=== PATIENT | female | born 1950 | race Caucasian/White ===

== ENCOUNTER 2016-08-09 07:21 | Observation (INO) ==
--- NOTE | 2016-08-09 08:06 | XRay Report ---
Referring Physician: Issa Simon Exam: XR right tibia/fibula 2 views Date: August 09, 2016 at 7:51 AM Reason: Right leg injury, initial encounter Comparison: None Findings: There is mild degenerative change at the right knee. No acute fracture, dislocation or osseous destructive process is identified. There appears to be soft tissue swelling at the right lower extremity, especially at the medial aspect of the right lower calf. Impression: No acute osseous process is identified. However, there appears to be soft tissue swelling at the right lower extremity, mainly at the medial aspect of the right lower calf. PROCEDURE INTERPRETED AT [facility] DEPARTMENT OF RADIOLOGY Final Report Signed by: Dr. Michelle Sena
[2016-08-09 08:28] LABS: Basophils # 0.1 10*3/uL (0.0-0.2); Eosinophils # 0.6 10*3/uL (0.0-0.87); Eosinophils % 6.9 % (0.00-10.9); Hematocrit 44.3 VOL% (35.7-47.0); Hemoglobin 14.6 GM/DL (12.0-16.0); Immature Granulocytes % 0.3 %; Immature Granulocytes Absolute 0.03 #; Lymphocytes % 22.1 % (21.3-54.2); Mean Corpuscular Hemoglobin 29 PG (27-34); Mean Platelet Volume 9.9 FL (9.6-12.0); Monocytes # 0.8 10*3/uL (0.11-0.8); Monocytes % 8.8 % (1.7-12.7); Neutrophils # 5.6 10*3/uL (1.4-7.4); Neutrophils % 60.9 % (38.7-73.9); Platelet Count 260 T/CUMM (130-400); Red Blood Count 5.09 MC/CUMM (3.8-5.5); Red Cell Distribution Width 13.7 % (9.3-17.3); White Blood Count 9.1 T/CUMM (4-12)
[2016-08-09 08:38] LABS: PT Patient Result 10.8 SECS; Partial Thromboplastin Time 27.7 SECS (0-40)
[2016-08-09 09:00] LABS: Calcium 9.1 MG/DL (8.5-10.1); Magnesium 1.8 MG/DL (1.8-2.4); Osmolality,Calculated 282.4 MOS/KG (273-304); Potassium 3.6 MMOL/L (3.5-5.1)
[2016-08-09] MEDS ORDERED: CEFTAROLINE 600 MG in SODIUM CHLORIDE 0.9% 100 ML IV STA (09:24)
--- NOTE | 2016-08-09 09:31 | Emergency Department Note ---
Dhaval Wright Brooke, am scribing for, and in the presence of, Issa Simon MD 08:12. Aurora Wright Hans, MD, personally performed the services described in this documentation, ascribed by Nurys Puentes in my presence, and it is both accurate and complete 931 . Arrival - Arrival Chief Complaint: Extremity Injury Stated Complaint: swelling and brusing on leg ED Nursing Triage Note: Pt c/o slip and fall last night striking her right lower anterior leg on a step. Pt has large hematoma to the area. Mode of Arrival: Wheelchair Limitations: No Limitations Source: Patient, RN Notes Reviewed Time Seen by Provider: 08/09/16 07:50 - History of Present Illness HPI Narrative: Patient is a 66 year old female who presents to the ED with c/o pain, erythema, and ecchymosis to right lower leg. Patient says she slipped on a step, last night around 2300, and the right leg "slid" down the side of the step. She says she did not fall. Patient says the erythema, and ecchymosis has worsened over night. There is now a hematoma. Patient is unable to ambulate because of the pain. She has erythema streaking up the right leg. She does not have a history of skin infections but says she did have a "scratch" on the left leg that "took a while to heal." Patient says she does not normally bruise easily. She has no other complaints. Patient has PMHx of HTN, thyroid disorder, RA, bronchitis, COPD, pneumonia, right kidney cancer, and eczema. Patient is not currently taking any blood thinners. Onset (ago): day(s) (1) Allergies/Adverse Reactions: Allergies Allergy/AdvReac Type Severity Reaction Status Date / Time adhesive tape Allergy Mild ITCHING Verified 12/05/15 09:11 Home Medications: Home Medications Medication Instructions Recorded Confirmed Type Losartan [Cozaar] 1 tablet PO DAILY 11/21/15 12/05/15 History Methocarbamol Tab [Robaxin Tab] 750 mg PO BID 11/21/15 12/05/15 History Morphine Sulfate 30 mg PO TID 11/21/15 12/05/15 History Triamterene/Hctz 75-50 Tab 1 tablet PO DAILY 09/27/16 10/11/16 History [Maxzide 75-50] traMADol TAB [Ultram] 1 tablet PO DAILY 11/21/15 12/05/15 History Review of System - Review of System 12 point system: reviewed and no additional remarkable complaints except as stated - Review of System Constitutional: Absent: fever Respiratory: Absent: respiratory distress Skin: Present: other (Right lower leg pain, erythema, and ecchymosis). Absent: rash Medical,Surgical,& Family Hx - Medical History Cardio: History of: Hypertension Endocrine: History of: Thyroid Disorder (NO MEDS) Rheumatology: History of;: Rheumatoid Arthritis Respiratory: History of: Bronchitis, COPD, Pneumonia Genitourinary: History of: Genitourinary Cancer (R KIDNEY) Other: History of: Eczema - Surgical History Thoracic Surgeries: Surgical HX of;: Kidney (Renal Surgery) (SMALL PORTION R KIDNEY) Reproductive Surgeries: Surgical HX of;: Dilation and Curettage, Hysterectomy - Family History Family History: Reports;: Family Hypertension (MOM), Family Stroke (MOM) - Social History Smoking Status: Never smoker Exam Vital Signs: Vital Signs Temperature 97.8 F 08/09/16 07:52 Pulse Rate 85 08/09/16 07:52 Respiratory Rate 18 08/09/16 07:52 Blood Pressure 140/75 08/09/16 07:52 O2 Sat by Pulse Oximetry 94 L 08/09/16 07:27 - General General appearance: alert, in no apparent distress, obese - Head Head exam: Present: atraumatic, normocephalic - Eye Eye exam: Present: normal appearance, PERRL, EOMI - ENT ENT exam: Present: normal exam - Neck Neck exam: Present: normal inspection - Chest Chest inspection: Present: normal inspection, symmetric chest wall rise - Respiratory Respiratory exam: Present: normal lung sounds bilaterally - Cardiovascular Cardiovascular exam: Present: regular rate, normal rhythm, normal heart sounds - Abdominal Exam Abdominal exam: Present: soft. Absent: distention, tenderness - Extremities Exam Extremities exam: Present: normal inspection, other (Right lower extremity pulses palpable) - Back Exam Back exam: Present: normal inspection - Neurological Exam Neurological exam: Present: alert, oriented X3 - Psychiatric Psychiatric exam: Present: normal affect, normal mood - Skin Skin exam: Present: warm, dry, intact, other (Right lower extremity ecchymosis and red streak going up leg. No crepitus or skin blisters.) Course Course Narrative: This patient was evaluated in the ER and found to have an impressive cellulitis with hematoma on the right inner lower leg. She was treated with teflaro and discussed with hospitalist continuous miner for admission for cellulitis. Results - Labs CBC & BMP: 08/09/16 08:03 08/09/16 08:03 Lab Results: I have reviewed the patients labs Labs: Laboratory Tests 08/09/16 08:03 Baso % (Auto) 1.0 H Laboratory Tests 08/09/16 08/09/16 08/09/16 08:03 08:03 08:03 WBC 9.1 RBC 5.09 Hgb 14.6 Hct 44.3 MCV 87.0 MCH 29 MCHC 33.0 RDW 13.7 Plt Count 260 MPV 9.9 Neut % (Auto) 60.9 Lymph % (Auto) 22.1 [place] % (Auto) 8.8 Eos % (Auto) 6.9 Baso % (Auto) 1.0 H Neut # (Auto) 5.6 Lymph # (Auto) 2.0 [place] # (Auto) 0.8 Eos # (Auto) 0.6 Baso # (Auto) 0.1 Immature Gran % 0.3 Nucleated RBC % 0.0 Immature Gran # 0.03 Nucleated RBCs # 0.00 INR 1.0 PT Patient/Control Mix 10.8 Circ Anticoag PTT 27.7 Sodium 140 Potassium 3.6 Chloride 99 Carbon Dioxide 32 Anion Gap 12.6 BUN 24 H Creatinine 0.80 GFR Calculation 109 BUN/Creatinine Ratio 30.00 H Glucose 95 Calculated Osmolality 282.4 Calcium 9.1 Magnesium 1.8 - Diagnostic Findings Procedure: X-ray: report reviewed by me (XR tibia fibula RT: No acute osseous process id identifed. However, there appears to be soft tissue swelling at the right lower extremity, mainly at the medial aspect of the right lower calf.) Disposition Clinical Impression: Cellulitis Case discussed with: patient Disposition: Still a Patient Condition: Stable Time of Disposition: 09:31
[2016-08-09] MEDS ORDERED: DOCUSATE SODIUM 100 MG CAPSULE PO PRN (09:54)
[2016-08-09] MEDS ORDERED: guaiFENesin/DM ER 600-30 MG TABLET PO PRN (09:54)
[2016-08-09] MEDS ORDERED: PROMETHAZINE 25 MG/1 ML VIAL IM PRN (09:54)
[2016-08-09] MEDS ORDERED: CEFTAROLINE 600 MG VIAL IV ONE (09:54)
[2016-08-09] MEDS ORDERED: diphenhydrAMINE CAP 25 MG CAPSULE PO PRN (09:54)
--- NOTE | 2016-08-09 09:58 | Hospitalist History & Physical ---
Assessment and Plan - Time spent with patient Time spent with patient: Greater than 30 minutes (1) Hematoma Status: Acute Assessment and plan: 66-year-old mildly obese white female with history of chronic back pain with stimulator, hypertension, RA, and kidney cancer admitted by the hospitalist service with severe cellulitis to the right lower extremity and hematoma due to a fall last night. The hematoma does not look infected or necrotic at this point in time. Patient will receive IV antibiotics and ice for pain control. Will restart her home medicines and add some additional pain medicines for her leg. Patient does ambulate with 2 canes so she can continue to use this to help with ambulation. We will continue to watch the hematoma in the leg for improvement because if it does not we will need to consult surgery for drainage of the hematoma. Dr. Tan will see and examined patient and further recommendations to follow. Current Visit: Yes (2) Chronic back pain Status: Acute Current Visit: Yes (3) Hypertension Status: Acute Current Visit: Yes (4) Rheumatoid arthritis Status: Acute Current Visit: Yes (5) Cellulitis Status: Acute Current Visit: Yes History of Present Illness Chief complaint: Right lower leg pain and redness History of present illness: Ms. Cortez is a 66 year old white female with history of hypertension, RA, kidney cancer, and chronic back pain presenting to the ED with a 1 day history of redness pain and hematoma to the right lower extremity. Patient states she was trying to get in her bed last night and she slipped on the step and hit her right rizo. Patient states the pain was a 20/10 last night and as long as she is immobile this morning there is no pain. She states that increases to a 5/10 out of pain when she is up ambulating. She does ambulate with 2 canes and she has brought them with her on this visit. Patient is afebrile and vital signs are stable. Her white count is normal but her right lower leg is severely cellulitic with a 7 x 7 cm raised hematoma on medial rizo. The hematoma does not look infected or necrotic at this point in time. X-ray of her tib-fib shows no osseous process. Just some soft tissue swelling at the right lower extremity more on the medial aspect of the right lower calf. Patient denies headache, dizziness, shortness of breath, chest pain, abdominal pain, dysuria, or lower extremity edema. Patient did receive a dose of Teflaro in the ED. After discussion with Dr. Simon the ED physician and Dr. Tan the hospitalist it was agreed patient would be admitted under observation for several doses of antibiotics due to the severity of the cellulitis. Home Medications Medication Instructions Recorded Confirmed Type Losartan [Cozaar] 1 tablet PO DAILY 11/21/15 12/05/15 History Methocarbamol Tab [Robaxin Tab] 750 mg PO BID 11/21/15 12/05/15 History Morphine Sulfate 30 mg PO TID 11/21/15 12/05/15 History Triamterene/Hctz 75-50 Tab 1 tablet PO DAILY 11/21/15 12/05/15 History [Maxzide 75-50] traMADol TAB [Ultram] 1 tablet PO DAILY 11/21/15 12/05/15 History Allergies Allergy/AdvReac Type Severity Reaction Status Date / Time adhesive tape Allergy Mild ITCHING Verified 12/05/15 09:11 Medical,Surgical,& Family Hx - Medical History Cardio: History of: Hypertension Endocrine: History of: Thyroid Disorder (NO MEDS) Rheumatology: History of;: Rheumatoid Arthritis Respiratory: History of: Bronchitis, COPD, Pneumonia Genitourinary: History of: Genitourinary Cancer (R KIDNEY) Other: History of: Eczema - Surgical History Thoracic Surgeries: Surgical HX of;: Kidney (Renal Surgery) (SMALL PORTION R KIDNEY) Reproductive Surgeries: Surgical HX of;: Dilation and Curettage, Hysterectomy - Family History Family History: Reports;: Family Hypertension (MOM), Family Stroke (MOM) - Social History Smoking Status: Never smoker Frequency of Alcohol Use: None Type of Drug Use: None Marital Status: Lives With:: Spouse Functional capacity: uses cane/walker Review of systems: A complete 10 system review of systems was obtained and pertinent positives and negatives per HPI Exam - Constitutional Vitals: Period Temp Pulse Resp BP Sys/Florian Pulse Ox Last 24 Hr 97.8 F-97.8 F 85-85 18-18 140-140/75-75 94 Exam: 66-year-old obese white female, no acute distress, alert and oriented Constitutional System: No distress. No tremulousness. Head: Normocephalic, atraumatic. Ears, Nose and Throat System: No evidence of Otitis or Mastoiditis. No epistaxis or discharge Eyes System: Pupils equal, round, and reactive. Extraocular muscles intact. Neck: Supple, without adenopathy, No jugular venous distention. No thyromegaly, neck mass, or prior surgery apparent. Respiratory System: Chest clear to auscultation. Cardiovascular System: Heart with regular rate and rhythm. No murmur. GI System: Abdomen soft, nontender morbidly obese. Normo active bowel sounds present. Musculoskeletal System: limbs with no pedal edema. Full distal pulses. Severe cellulitis to the right lower extremity streaking up to the knee with 7 x 7 cm raised hematoma with no necrosis Neurological System: No discernable sensory deficit. No aphasia Psychiatric System: Conversation is rational Results - Labs CBC & BMP: 08/09/16 08:03 08/09/16 08:03 Lab Results: I have reviewed the past 24 hour labs - Diagnostic Findings Procedure: X-ray: report reviewed by me (Tib-fib x-ray shows no acute osseous process identified but soft tissue swelling at the right lower extremity.)
[2016-08-09] MEDS ORDERED: ANORO ELLIPTA (Umeclidinium Brm/Vilanterol Tr) 1 PUFF INH SCH (10:00)
[2016-08-09] MEDS ORDERED: HYDROmorphone 2 MG/1 ML VIAL IV PRN (10:08)
[2016-08-09] MEDS: CEFTAROLINE 600 MG in SODIUM CHLORIDE 0.9% 100 ML IV SCH ×2 (12:49→20:58)
[2016-08-09] MEDS: SODIUM CHLORIDE 0.9% 1,000 ML IV SCH (13:15)
[2016-08-09] MEDS: LOSARTAN 25 MG TABLET PO SCH (13:23)
[2016-08-09] MEDS: TRIAMTERENE/HCTZ 75-50 MG TABLET PO SCH (13:23)
[2016-08-09] MEDS: LUBIPROSTONE 24 MCG CAPSULE PO SCH (13:24)
[2016-08-09] MEDS: traMADol 50 MG TABLET PO SCH (13:24)
[2016-08-09] MEDS: METHOCARBAMOL 750 MG TABLET PO SCH ×2 (13:24→20:58)
[2016-08-09] MEDS: PANTOPRAZOLE 40 MG TABLET PO SCH (13:25)
[2016-08-09] MEDS: ENOXAPARIN 40 MG/0.4 ML SYRINGE SUBCUT SCH (13:25)
[2016-08-09] MEDS: MORPHINE IR 15 MG TABLET PO SCH ×2 (15:01→20:58)
--- NOTE | 2016-08-09 16:17 | General Surg History&Physical ---
Assessment and Plan - Time spent with patient Time spent with patient: Greater than 30 minutes (1) Hematoma Status: Acute Assessment and plan: There is clearly a posttraumatic hematoma of the lower leg. I have offered evacuation of this. She is unsure at this time what she wants to do. She is eaten a full meal this afternoon and so I would not encourage doing anything under anesthesia today. She is going to think about it and I will hold her n.p.o. after midnight in case she agrees to go ahead tomorrow with evacuation of the hematoma. Current Visit: Yes (2) Cellulitis Status: Acute Assessment and plan: She actually has erythema of the pretibial regions of both of her lower extremities with the right side being worse than the left. She was not aware that this was before her injury or not. This does not look typical of what I would expect from trauma. I think that she may have an associated cellulitis which may or may not even be related to the hematoma. Current Visit: Yes Qualifiers: Site of cellulitis of extremity: lower extremity History of Present Illness Chief complaint: Injury to right lower leg History of present illness: Ms. Cortez is a 66 year old female Who stumbled when she was stepping up on a step stool and hit her medial right lower leg against the step stool. She believes she slipped on some water trying to get up on the stool. She developed swelling pain and redness and discoloration of her right lower leg. The pain is moderate in severity and worse if her leg is held down. She has had some increasing redness over the past 24 hours. She has had previous lower extremity cellulitis. She had an episode several years ago where she ended up with an injury and cellulitis and open wound on her left lower anterior leg. She denies fever or chills. She has had increasing redness separate from the area of swelling and ecchymosis. Home Medications Medication Instructions Recorded Confirmed Type Losartan [Cozaar] 25 mg PO DAILY 11/21/15 08/09/16 History Methocarbamol Tab [Robaxin Tab] 750 mg PO BID 11/21/15 08/09/16 History Morphine Sulfate 30 mg PO BID 11/21/15 08/09/16 History Triamterene/Hctz 75-50 Tab 1 tablet PO DAILY 11/21/15 08/09/16 History [Maxzide 75-50] traMADol TAB [Ultram] 50 mg PO DAILY 11/21/15 08/09/16 History Albuterol Sulfate [Proair HFA] 2 puff INH Q4H PRN 08/09/16 08/09/16 History Lubiprostone [Amitiza] 24 mcg PO DAILY 08/09/16 08/09/16 History Naproxen [Naprosyn Tab] 500 mg PO BID 08/09/16 08/09/16 History Umeclidinium Brm/Vilanterol Tr 1 puff INH DAILY 08/09/16 08/09/16 History [Anoro Ellipta] Allergies Allergy/AdvReac Type Severity Reaction Status Date / Time adhesive tape Allergy Mild ITCHING Verified 12/05/15 09:11 Medical,Surgical,& Family Hx - Medical History Cardio: History of: Hypertension Endocrine: History of: Thyroid Disorder (NO MEDS) Rheumatology: History of;: Rheumatoid Arthritis Respiratory: History of: Bronchitis, COPD, Pneumonia Genitourinary: History of: Genitourinary Cancer (R KIDNEY) Other: History of: Eczema - Surgical History Thoracic Surgeries: Surgical HX of;: Kidney (Renal Surgery) (SMALL PORTION R KIDNEY) Reproductive Surgeries: Surgical HX of;: Dilation and Curettage, Hysterectomy - Family History Family History: Reports;: Family Hypertension (MOM), Family Stroke (MOM) - Social History Smoking Status: Never smoker Frequency of Alcohol Use: None Type of Drug Use: None Exam - Constitutional Vitals: Period Temp Pulse Resp BP Sys/Florian Pulse Ox Last 24 Hr 97.8 F-98.2 F 78-86 18-20 140-160/75-78 93-94 General appearance: no acute distress - Head Head exam: Present: normocephalic - Eye Eye exam: Absent: scleral icterus - ENT Mouth exam: Present: normal voice - Neck Neck exam: Present: trachea midline - Respiratory Respiratory exam: Present: clear to auscultation bilaterally. Absent: accessory muscle use - Cardiovascular Cardiovascular exam: Present: RRR - GI/Abdominal GI/Abdominal exam: Present: soft. Absent: distended, tenderness, rebound - Extremities Exam Extremities exam: Present: edema, other (There is a 7 cm area of swelling and ecchymosis but the skin over this appears viable. This is on the medial lower leg.). Absent: calf tenderness - Neurological Exam Neurological exam: Present: alert, oriented X3. Absent: motor sensory deficit Speech: Present: normal - Skin Skin exam: Present: erythema - Constitutional Constitutional: Absent: anorexia, chills, fever(s) - Cardiovascular Cardiovascular: Present: dyspnea on exertion. Absent: chest pain at rest, chest pain with activity, dyspnea, syncope - Gastrointestinal Gastrointestinal: Absent: abdominal pain, hematemesis, hematochezia, nausea, jaundice - Genitourinary Genitourinary: Absent: hematuria - Musculoskeletal Musculoskeletal: Absent: back pain - Neurological Neurological: Absent: focal weakness, syncope - Endocrine Endocrine: Absent: polyuria Hematologic/Lymphatic: Absent: easy bruising Results - Labs CBC & BMP: 08/09/16 08:03 08/09/16 08:03 Lab Results: I have reviewed the past 24 hour labs
[2016-08-10] MEDS: SODIUM CHLORIDE 0.9% 1,000 ML IV SCH ×3 (00:43→16:11)
[2016-08-10 06:35] LABS: Basophils # 0.1 10*3/uL (0.0-0.2); Basophils % 1.1 % (0.0-0.8); Eosinophils # 0.4 10*3/uL (0.0-0.87); Eosinophils % 6.7 % (0.00-10.9); Hematocrit 41.4 VOL% (35.7-47.0); Hemoglobin 13.5 GM/DL (12.0-16.0); Immature Granulocytes % 0.3 %; Immature Granulocytes Absolute 0.02 #; Lymphocytes # 1.3 10*3/uL (1.4-4.0); Mean Corpuscular HGB Conc 32.6 GM/DL (32-36); Mean Corpuscular Hemoglobin 29 PG (27-34); Mean Corpuscular Volume 88.3 FL (87-102); Mean Platelet Volume 10.4 FL (9.6-12.0); Monocytes # 0.6 10*3/uL (0.11-0.8); Monocytes % 9.6 % (1.7-12.7); Neutrophils # 3.8 10*3/uL (1.4-7.4); Neutrophils % 61.3 % (38.7-73.9); Platelet Count 235 T/CUMM (130-400); Red Blood Count 4.69 MC/CUMM (3.8-5.5); Red Cell Distribution Width 13.8 % (9.3-17.3); White Blood Count 6.2 T/CUMM (4-12)
--- NOTE | 2016-08-10 09:06 | Event Note ---
The hematoma seems a little more swollen and she now desires surgical evacuation which I agree with. Procedure and risks were discussed with her and her family and she wishes to proceed today.
[2016-08-10] MEDS ORDERED: BUPIVACAINE MPF 0.25% /EPI 30 ML VIAL ONE (09:07)
[2016-08-10] MEDS: PANTOPRAZOLE 40 MG TABLET PO SCH (09:17)
[2016-08-10] MEDS: CEFTAROLINE 600 MG in SODIUM CHLORIDE 0.9% 100 ML IV SCH ×2 (09:19→20:58)
[2016-08-10] MEDS ORDERED: PROPOFOL 200 MG/20 ML VIAL IV ONE (09:40)
--- NOTE | 2016-08-10 10:02 | Hospitalist Progress Note ---
Assessment and Plan - Time spent with patient Time spent with patient: Greater than 30 minutes (1) Cellulitis Status: Acute Assessment and plan: Continue antibiotics. Current Visit: Yes Qualifiers: Site of cellulitis of extremity: lower extremity (2) Hematoma Status: Acute Assessment and plan: Appreciate surgery's assistance. Surgery today. Current Visit: Yes Hospitalist: Subjective Interval history: No complaints or overnight events. Patient has decided this morning to have the hematoma evacuated. Exam - Constitutional Vitals: Period Temp Pulse Resp BP Sys/Florian Pulse Ox Last 24 Hr 97.1 F-98.2 F 77-86 14-22 106-160/60-81 87-98 General appearance: no acute distress - Head Head exam: Present: normocephalic, atraumatic - Eye Eye exam: Present: EOMI Pupils: Present: SHARI - ENT ENT exam: Present: normal exam - Neck Neck exam: Present: normal inspection - Respiratory Respiratory exam: Present: clear to auscultation bilaterally. Absent: rhonchi, wheezes - Cardiovascular Cardiovascular exam: Present: regular rate and rhythm. Absent: gallop, rubs, systolic murmur - GI/Abdominal GI/Abdominal exam: Present: normal bowel sounds, soft. Absent: distended, firm , guarding, tenderness, rebound - Extremities Exam Extremities exam: Present: normal inspection, other (Right lower leg hematoma with surrounding erythema). Absent: calf tenderness, edema Results - Labs CBC & BMP: 08/10/16 05:45 08/09/16 08:03 Lab Results: I have reviewed the past 24 hour labs
--- NOTE | 2016-08-10 10:04 | Operative Note ---
Date of procedure: 08/10/16 Pre-op diagnosis: 7 cm hematoma right lower leg Post-op diagnosis: same Procedure: Evacuation of 7 cm subcutaneous and subfascial hematoma right medial lower leg Findings and technique: After informed consent was obtained patient was brought the operating room and placed in supine position. After IV sedation was administered the patient's right lower extremity was prepped and draped in usual sterile fashion. Local anesthesia was infiltrated and a vertical incision made about 2 cm in length along the medial left lower leg over the most intense portion of the hematoma. There was hematoma right beneath the skin and this had displaced some of the subcutaneous tissue which probably had been destroyed by trauma and fat necrosis. The hematoma itself tracked out into the subcutaneous tissues and was interspersed with her rather thick subcutaneous layer. There was hematoma beneath the superficial fascia as well which was evacuated with a suction cannula and a hemostat. This cavity was copiously irrigated out. It was inspected for bleeding and cautery applied to a few small oozing points in the subcutaneous layer and on the fascia. After the wound was irrigated and good hemostasis noted the wound edges were closed with skin clips and a bulky dressing applied. She appeared to tolerate the procedure well. Anesthesia: MAC, local Surgeon / Physician: Brant Rodriguez III. Estimated blood loss: minimal Specimens: none sent Condition: stable Disposition: PACU Results - Labs CBC & BMP: 08/10/16 05:45 08/09/16 08:03 Discharge Plan - Discharge Medications No Action Losartan [Cozaar] 25 mg PO DAILY Triamterene/Hctz 75-50 Tab [Maxzide 75-50] 1 tablet PO DAILY Methocarbamol Tab [Robaxin Tab] 750 mg PO BID traMADol TAB [Ultram] 50 mg PO DAILY Morphine Sulfate 30 mg PO BID Lubiprostone [Amitiza] 24 mcg PO DAILY Umeclidinium Brm/Vilanterol Tr [Anoro Ellipta] 1 puff INH DAILY Albuterol Sulfate [Proair HFA] 2 puff INH Q4H PRN PRN Reason: Shortness Of Breath/Wheezing Naproxen [Naprosyn Tab] 500 mg PO BID - Follow Up or Referral - Forms/Instructions
--- NOTE | 2016-08-10 10:15 | Anesthesia Post-Op ---
Anesthesia Post OP - Post Ansesthetic Evaluation Patient seen in post op: Yes Resp: within normal limits CV: within normal limits Mental: within normal limits Temp: within normal limits [id number]: within normal limits Nausea and Vomiting: within normal limits Pain: within normal limits
[2016-08-10] MEDS ORDERED: MIDAZOLAM 2 MG/2 ML VIAL ONE (10:16)
[2016-08-10] MEDS ORDERED: fentaNYL 100 MCG/2 ML VIAL ONE (10:16)
[2016-08-10] MEDS: LOSARTAN 25 MG TABLET PO SCH (11:58)
[2016-08-10] MEDS: traMADol 50 MG TABLET PO SCH (11:58)
[2016-08-10] MEDS: TRIAMTERENE/HCTZ 75-50 MG TABLET PO SCH (11:59)
[2016-08-10] MEDS: METHOCARBAMOL 750 MG TABLET PO SCH ×2 (12:00→20:57)
[2016-08-10] MEDS: LUBIPROSTONE 24 MCG CAPSULE PO SCH (12:00)
[2016-08-10] MEDS: MORPHINE IR 15 MG TABLET PO SCH ×3 (12:00→20:57)
[2016-08-10] MEDS: ENOXAPARIN 40 MG/0.4 ML SYRINGE SUBCUT SCH (12:01)
[2016-08-11] MEDS: ONDANSETRON 4 MG/2 ML VIAL IV PRN ×2 (00:37→11:44)
[2016-08-11] MEDS: SODIUM CHLORIDE 0.9% 1,000 ML IV SCH (01:44)
[2016-08-11 08:15] VITALS: BP 156/70
[2016-08-11] MEDS: MORPHINE IR 15 MG TABLET PO SCH (10:06)
[2016-08-11] MEDS: LUBIPROSTONE 24 MCG CAPSULE PO SCH (10:07)
[2016-08-11] MEDS: METHOCARBAMOL 750 MG TABLET PO SCH (10:07)
[2016-08-11] MEDS: TRIAMTERENE/HCTZ 75-50 MG TABLET PO SCH (10:08)
[2016-08-11] MEDS: LOSARTAN 25 MG TABLET PO SCH (10:08)
[2016-08-11] MEDS: traMADol 50 MG TABLET PO SCH (10:08)
[2016-08-11] MEDS: ENOXAPARIN 40 MG/0.4 ML SYRINGE SUBCUT SCH (10:09)
[2016-08-11] MEDS: PANTOPRAZOLE 40 MG TABLET PO SCH (10:09)
--- NOTE | 2016-08-11 10:10 | Discharge Summary ---
Hospital Course - Hospital Course Hospital Course: Ms. Cortez was admitted for right lower extremity traumatic hematoma. She was seen by surgery and was taken to the operating room for evacuation. She was initiated on antibiotics for potential cellulitis with the significant amount of erythema around the area. Post evacuation and initiation of antibiotics, her erythema had dramatically improved and the hematoma was near resolved. The area was clean, clear, intact and stapled. Patient was cleared for discharge by surgery. She was instructed on leg raising and ice packing. She will continue oral antibiotics as an outpatient. I spent 36 minutes coordinating this discharge. - Time spent with patient Time with patient DS: Greater than 30 minutes Diagnosis - Discharge Diagnosis (1) Cellulitis Status: Acute (2) Hematoma Status: Acute Specialty Discharge - Follow Up or Referrals Follow up with: Brant Rodriguze III., MD [Physician] - 1 Week Discharge Plan - Discharge Data Disposition: Disch To Home/Self Care Condition at Discharge: Stable Discharge Diet: advance to your usual diet Activity: resume usual activities as tolerated Hygiene: no restrictions Weight Bearing at Discharge: full weight bearing Driving: no restrictions - Discharge Medications New Sulfameth/Trimeth 800-160 Tab [Bactrim DS Tab] 1 tablet PO BID #18 tablet Continue Losartan [Cozaar] 25 mg PO DAILY Triamterene/Hctz 75-50 Tab [Maxzide 75-50] 1 tablet PO DAILY Methocarbamol Tab [Robaxin Tab] 750 mg PO BID traMADol TAB [Ultram] 50 mg PO DAILY Morphine Sulfate 30 mg PO BID Lubiprostone [Amitiza] 24 mcg PO DAILY Umeclidinium Brm/Vilanterol Tr [Anoro Ellipta] 1 puff INH DAILY Albuterol Sulfate [Proair HFA] 2 puff INH Q4H PRN PRN Reason: Shortness Of Breath/Wheezing Discontinued Naproxen [Naprosyn Tab] 500 mg PO BID - Follow Up or Referral Follow Up: Brant Rodriguez III., MD [Physician] - 1 Week - Forms/Instructions Exam - Constitutional Vitals: Period Temp Pulse Resp BP Sys/Florian Pulse Ox Last 24 Hr 97.4 F-98.3 F 21-98 16-85 114-157/47-80 91-100 General appearance: normal weight, no acute distress - Head Head exam: Present: normal inspection, normocephalic, atraumatic - Eye Eye exam: Present: EOMI Pupils: Present: SHARI - ENT ENT exam: Present: normal exam - Neck Neck exam: Present: normal inspection - Respiratory Respiratory exam: Present: clear to auscultation bilaterally. Absent: accessory muscle use, prolonged expiratory phase, wheezes - Cardiovascular Cardiovascular exam: Present: regular rate and rhythm. Absent: bradycardia, irregular rhythm, systolic murmur - GI/Abdominal GI/Abdominal exam: Present: normal bowel sounds. Absent: ascites, hypoactive bowel sounds, tenderness - Extremities Exam Extremities exam: Present: normal inspection, other (Right lower extremity anterior medial area of residual hematoma with figueroa clean clear and intact) DS: Provider Date of admission: 08/09/16 09:35 Primary care physician: . No PCP Attending physician on admission: Laila Siegel MD Consults: 08/09/16 13:32 Consult to Physician [CONS] Routine Comment: right lower leg traumatic hematoma Consulting Provider: Brant Rodriguez III. Consult to Specialist Group: Surgery When should Consulting Provider be notified: Now Consult Notification Comment: message left on phone and surgery called at [phone] 08/09/16 Discharging clinician: Laila Siegel MD Expected date of discharge: 08/11/16
[2016-08-11] MEDS: CEFTAROLINE 600 MG in SODIUM CHLORIDE 0.9% 100 ML IV SCH (10:12)
--- NOTE | 2016-08-11 10:24 | General Surgery Progress Note ---
Assessment and Plan (1) Hematoma Status: Acute Assessment and plan: There is clearly a posttraumatic hematoma of the lower leg. I have offered evacuation of this. She is unsure at this time what she wants to do. She is eaten a full meal this afternoon and so I would not encourage doing anything under anesthesia today. She is going to think about it and I will hold her n.p.o. after midnight in case she agrees to go ahead tomorrow with evacuation of the hematoma. 08/11: She feels much better. She feels that her lower extremities are now at a baseline. She has as she describes a chronic erythema of both of her lower extremities which is probably old stasis dermatitis from her morbid obesity. Her wound looks good and I think she is fine for outpatient treatment. I recommended that she keep her leg elevated and stay off of it is much as possible and also wear an Beau bandage. I will follow her up in the office in 1 week. Current Visit: Yes (2) Cellulitis Status: Acute Assessment and plan: She actually has erythema of the pretibial regions of both of her lower extremities with the right side being worse than the left. She was not aware that this was before her injury or not. This does not look typical of what I would expect from trauma. I think that she may have an associated cellulitis which may or may not even be related to the hematoma. Current Visit: Yes Qualifiers: Site of cellulitis of extremity: lower extremity Subjective Patient reports: Present: feels better. Absent: still having pain, fever Exam - Constitutional Vitals: Period Temp Pulse Resp BP Sys/Florian Pulse Ox Last 24 Hr 97.4 F-98.3 F 21-98 16-85 114-157/47-80 91-100 General appearance: no acute distress, morbidly obese - Extremities Exam Extremities exam: Present: other (The mass-effect and erythema is greatly diminished. Her skin looks viable and I do not see signs of active infection.) . Absent: edema Results - Labs CBC & BMP: 08/10/16 05:45 08/09/16 08:03 Specialty Discharge - Follow Up or Referrals Follow up with: Brant Rodriguez III., MD [Physician] - 1 Week
== END 2016-08-11 11:50 | disposition home or self-care (01) ==
LOC: N.EDINP 07:21 → N.ED 07:21 → N.3E 10:11
PROVIDERS: ADMIT Internal Medicine; ATTEND Internal Medicine